=== PATIENT | female | born 1985 | race African-American/Black ===

== ENCOUNTER 2016-06-05 18:12 | Emergency (ER) | payer OTHER ==
--- NOTE | ~2016-06-05 | CR63 ---
[facility] A Service [facility] RADIOLOGY TEXT RESULTS PATIENT: LAST BRADFORD LOCATION: SED : [birth year] UNIT #: [id number] AGE: [address]: RIKKI CORTEZ SEX: F ORDER DR: [id number] [place] [address] [id number] E MR#: [id number] Acc #: [id number] NAME: LAST BRADFORD : 1985 SEX: F STUDY DATE/TIME: 06/05/2016 18:26 UNIT: SED ROOM: STUDY DESCRIPTION: CR Chest 2 View Attending Physician: Rikki Cortez Aprn Ordering Physician: Physician Non-Staff Primary Care Physician: Rhea Ramírez Aprn MEDICAL IMAGING REPORT This report is preliminary unless electronic signature is present. EXAM Chest x-ray, 06/05. INDICATIONS Cough, congestion, body aches since last Sunday. Patient tested positive for the flu. COMPARISONS 07/02/2011. FINDINGS PA and lateral examination of the chest upright shows a good expansion of the parenchyma with a normal distribution of the pulmonary vascularity. There is no indication of congestion, effusion, infiltrate, tumor, or nodular density. The pleural reflections and diaphragmatic contours are normal. The cardiac silhouette and mediastinal anatomy is within normal limits. IMPRESSION Normal chest. Dictated by... Josafat Sutherland Jr., M.D. THIS IS AN ELECTRONICALLY VERIFIED REPORT Josafat Sutherland Jr., M.D. at 06/06/2016 10:07 AM KALA/sena TD: 06/06/2016 09:11 JOB #: [id number] [facility] A Service [facility] RADIOLOGY TEXT RESULTS PATIENT: LAST BRADFORD LOCATION: SED : [birth year] UNIT #: [id number] AGE: [address]: RIKKI CORTEZ SEX: F ORDER DR: MEDICAL IMAGING REPORT Page 1 of 1
[~2016-06-05 18:12] MED LIST: ALBUTEROL MININEB NEB; ALBUTEROL17 GM IN; ALBUTEROL17 GM INH; ANAPROX DS550 M1 PO; BACLOFEN10 MG PO; DICLOFENAC PO; DULERA 100 MCG/13 GM INH; FLAGYL PO; FLEXERIL PO; FLEXERIL10 M1 PO; FLEXERIL10 MG; FLONASE 0.05% N16 G1; HYDROCODON-ACE1 EAC5 PO; LATUDA20 MG PO; LORTAB 7.51 TAB 7.5/ DOB; MEDROL DOSEPAK4 MG DOB; MEDROL DOSEPAK4 MG PO; MIRALAX17 GM PO; NAPROSYN500 MG PO; NO MEDICATIONS; ORUDIS75 M1 PO; PERCOCET5/325 PO; PHENERGAN25 M1 PO; PREDNISONE PO; ROBAXIN500 MG PO; SINGULAIR PO; TYLENOL #3 PO; VICODIN 5/1 TAB 5/50 PO; VOLTAREN25 MG; VOLTAREN75 MG PO; ZOLOFT PO
[2016-06-05 18:20] LABS: INFLUENZA A NEG (NEG); INFLUENZA B POS (NEG)
== END 2016-06-05 19:00 | disposition home or self-care (01) ==
LOC: SED 18:12
PROVIDERS: Emergency Medicine
DX: J10.1 Influenza due to other identified influenza virus with other respiratory manifestations (principal); H66.92 Otitis media, unspecified, left ear; J45.909 Unspecified asthma, uncomplicated; F17.210 Nicotine dependence, cigarettes, uncomplicated; Z90.49 Acquired absence of other specified parts of digestive tract; Z98.890 Other specified postprocedural states
CPT/HCPCS: 71020; 87651; 87804; 94640; 99283

== ENCOUNTER 2016-11-16 18:10 | Emergency (ER) | payer OTHER ==
[~2016-11-16] VITALS: Ht 162.6 cm; Wt 103.9 kg
--- NOTE | ~2016-11-16 | US98 ---
[facility] A Service of [facility] RADIOLOGY TEXT RESULTS PATIENT: LAST BRADFORD LOCATION: CFTX : [birth year] UNIT #: [id number] AGE: [address]: ANTELMO BLANCO APRN SEX: F ORDER DR: [id number] [facility] [address] [place], [place] [address] [id number] E MR#: [id number] Acc #: [id number] NAME: LAST BRADFORD : 1985 SEX: F STUDY DATE/TIME: 11/16/2016 21:57 UNIT: [facility] ROOM: STUDY DESCRIPTION: US Pelvic Non-OB Complete Attending Physician: Antelmo Blanco Aprn Ordering Physician: Antelmo Blanco Aprn Primary Care Physician: Rhea Ramírez Aprn MEDICAL IMAGING REPORT This report is preliminary unless electronic signature is present EXAM Pelvic sonogram HISTORY Left lower quadrant pain for 4 days history of ovarian cysts, elevated white count. FINDINGS Real-time examination was form Megan both transabdominally vaginal scanning. Examination demonstrates a normal-appearing nongravid uterus measuring 6.8 x 4.1 x about 5 cm. The endometrial appears normal with a double thickness measurement of 6 mm. No free fluid or adnexal masses. Both ovaries are visualized unremarkable except for normal follicular cyst. Normal vascular flow. IMPRESSION Normal pelvic sonogram. Dictated by... Gaby Moreno M.D. THIS IS AN ELECTRONICALLY VERIFIED REPORT Gaby Moreno M.D. at 11/17/2016 6:55 PM Eugene TD: 11/17/2016 05:22 JOB #: [id number] MEDICAL IMAGING REPORT Page 1 of 1 COPY
[2016-11-16 22:03] LABS: URINE SOURCE CLEAN CATCH
[2016-11-16 22:09] LABS: URINE APPEARANCE CLOUDY; URINE BILIRUBIN NEG (NEG); URINE BLOOD 1+ (NEG); URINE COLOR YELLOW; URINE GLUCOSE NEG (NEG); URINE KETONE NEG (NEG); URINE LEUKOCYTE ESTERASE NEG (NEG); URINE NITRATE NEG (NEG); URINE PROTEIN NEG (NEG); URINE SPECIFIC GRAVITY 1.024 (1.003-1.035); URINE UROBILINOGEN 0.2 MG/DL (NEG)
[2016-11-16 22:11] LABS: CULTURE INDICATED? YES; U HYALINE CASTS AUWI 0-2 /[LPF]; URINE BACTERIA AUWI 1+ (NEGATIVE); URINE SQUAMOUS EPITHELIAL CELL FEW /[HPF]
[2016-11-20 13:53] LABS: CHLAMYDIA TRACH Not Detected (Not Detected); N GONOR Not Detected (Not Detected)
== END 2016-11-16 23:39 | disposition home or self-care (01) ==
LOC: CFTX 18:10 → CED 18:10 → CFTX 21:59
PROVIDERS: Nurse Practitioner Family
DX: N76.0 Acute vaginitis (principal); N39.0 Urinary tract infection, site not specified; J45.909 Unspecified asthma, uncomplicated; G54.0 Brachial plexus disorders; F43.10 Post-traumatic stress disorder, unspecified; Z86.79 Personal history of other diseases of the circulatory system; N83.209 Unspecified ovarian cyst, unspecified side; F17.210 Nicotine dependence, cigarettes, uncomplicated; Z90.49 Acquired absence of other specified parts of digestive tract; Z91.040 Latex allergy status; Z88.8 Allergy status to other drugs, medicaments and biological substances; Z79.899 Other long term (current) drug therapy
CPT/HCPCS: 76830; 76856; 81003; 84703; 87086; 87491; 87591; 87808; 87905; 99284